=== PATIENT | female | born 1985 | race Caucasian/White ===

== ENCOUNTER 2018-12-24 23:19 | Day surgery (SDC) | payer OTHER ==
[~2018-12-24] VITALS: Ht 154.9 cm; Wt 76.3 kg
[2018-12-24 23:19] VITALS: BP 149/98; PULSE 82; TEMP 98.5
[2018-12-24] MEDS ORDERED: NEURONTIN600 MG/TAB PO (23:37)
[2018-12-24] MEDS ORDERED: FLEXERIL 1010 MG/TAB PO (23:37)
[2018-12-24] MEDS ORDERED: CYMBALTA 60MG60 MG PO (23:38)
[2018-12-24] MEDS ORDERED: MOBIC15 MG PO (23:38)
[2018-12-25] VITALS (8 sets, daily range): BP systolic 110–142; BP diastolic 64–90; PULSE 85–100; TEMP 98–98.3
--- NOTE | 2018-12-25 00:02 | NUR ---
Pt. arrived to the floor via ems. Pt. able to independently transfer to the bed. Pt. is A&OX3, assessment complete. Pt. reports pain at 8 on pain scale. Will give pain med per orders. Pt. denies further needs, call light within reach.
--- NOTE | 2018-12-25 05:58 | NUR ---
Pt. resting quietly at this time. Respirations are equal and unlabored. Pt. arousable to verbal stimuli. Pt. remains A&OX3. IV to lt. ac remains patent. Pt. reports no pain. Pt. denies further needs at this time.
--- NOTE | 2018-12-25 07:00 | NUR ---
Patient down to OR by bed.
--- NOTE | 2018-12-25 08:55 | NUR ---
Patient up from OR. Alert and oriented x3. States mild discomfort. Refuses medicaitons at this time. Shift assessment complete. Patient up to restroom, voiding leyva red urine. Denies further needs at this time.
--- NOTE | 2018-12-25 10:05 | NUR ---
Initial visit; Patient thanked Jawbone Puller for offering God's blessings and keeping her in Jawbone Puller's prayers.
--- NOTE | 2018-12-25 12:05 | NUR ---
Discharge instructions provided. Patient educated on signs and symptoms of infecton. Educated on follow up appointment tomorrow. Educated patient on drinking plenty of fluids. All questions answered. States pain better after second administration of medication. All questions answered. INT to left AC discontinued, catheter tip intact. Denies further needs at this time. Patient out by wheelchair with surgical staff. Voiding without difficulty.
== END 2018-12-25 12:05 | disposition home or self-care (01) ==
LOC: SDCO 23:19 → SURG 23:19 → SDCO 12-25 12:05 → SURG 12-25 12:05
DX: N20.1 Calculus of ureter (principal); Z79.899 Other long term (current) drug therapy; F17.210 Nicotine dependence, cigarettes, uncomplicated; Z88.0 Allergy status to penicillin; K58.9 Irritable bowel syndrome, unspecified; G43.909 Migraine, unspecified, not intractable, without status migrainosus; Z87.442 Personal history of urinary calculi; M54.9 Dorsalgia, unspecified; M54.2 Cervicalgia
CPT/HCPCS: C1769; C1894; C2617; G0378; J1100; J1885; J2270; J2405; J2704; J3010; J7030; Q9967

== ENCOUNTER 2019-01-29 09:05 | Day surgery (SDC) | payer OTHER ==
[~2019-01-29] VITALS: Ht 156.2 cm; Wt 74.8 kg
[~2019-01-29 09:05] MED LIST: CYMBALTA 60MG60 MG PO; FLEXERIL 1010 MG/TAB PO; MOBIC15 MG PO; NEURONTIN600 MG/TAB PO
[2019-01-29 09:51] VITALS: BP 120/82; PULSE 96; TEMP 97.9
[2019-01-29] MEDS ORDERED: NORCO 325 MG-51 TAB PO (09:59)
[2019-01-29] MEDS ORDERED: ZOFRAN8 MG PO (10:00)
--- NOTE | 2019-01-29 10:05 | NUR ---
TO RM AT 0927- CALL LIGHT IN REACH AT BEDSIDE
[2019-01-29 11:10] VITALS: BP 120/85; PULSE 84; TEMP 97.2
--- NOTE | 2019-01-29 11:10 | NUR ---
TO 4 PER CART FROM PACU. ALERT ORIENTED X3, TALKING WITH STAFF. UPON RETURNING TO - AMBULATED TO BATHROOM. PATIENT VOIDED AND STATED SHE FELT MUCH BETTER. DENIES NAUSEA. C/O PAIN 12/31
[2019-01-29 11:13] VITALS: TEMP 98.2
[2019-01-29 11:25] VITALS: BP 121/78; PULSE 88
--- NOTE | 2019-01-29 11:25 | NUR ---
RECEIVED THAD AND LISA
[2019-01-29 11:40] VITALS: BP 128/83; PULSE 82
--- NOTE | 2019-01-29 11:40 | NUR ---
ATE 100% AND TOLERATED WELL.
--- NOTE | 2019-01-29 12:00 | NUR ---
RESTING QUIETLY WITH NO CHANGES
[2019-01-29 12:15] VITALS: BP 120/85; PULSE 87
--- NOTE | 2019-01-29 12:37 | NUR ---
RECEIVED PERCOCET 1 TAB PER C/O PAIN 10/31
[2019-01-29] MEDS ORDERED: PYRIDIUM 100MG100 MG PO (12:48)
--- NOTE | 2019-01-29 13:05 | NUR ---
STATED SHE WAS READY TO GO HOME. RECEIVED DISCHARGE INSTRUCTIONS AND VERBALIZED UNDERSTANDING. DISCONTINUED IV AND INT- CATHETER INTACT
--- NOTE | 2019-01-29 13:20 | NUR ---
DISCHARGED PER WC BY NURSING STAFF TO PRIVATE CAR IN CARE OF - MARÍA
== END 2019-01-29 13:20 | disposition home or self-care (01) ==
LOC: SDCO 09:05
DX: N20.0 Calculus of kidney (principal); F17.210 Nicotine dependence, cigarettes, uncomplicated; G43.909 Migraine, unspecified, not intractable, without status migrainosus; Z90.721 Acquired absence of ovaries, unilateral; Z88.8 Allergy status to other drugs, medicaments and biological substances; Z88.0 Allergy status to penicillin; Z80.9 Family history of malignant neoplasm, unspecified; Z83.3 Family history of diabetes mellitus; Z84.1 Family history of disorders of kidney and ureter; Z88.6 Allergy status to analgesic agent
CPT/HCPCS: C1769; C2617; J0690; J1100; J1170; J1885; J2270; J2405; J2704; J3010; J7120; Q9967

== ENCOUNTER → 2020-07-03 | Outpatient (CLI) | payer OTHER ==
[~2020-07-03] MED LIST changes: +NORCO 325 MG-51 TAB PO; +PYRIDIUM 100MG100 MG PO; +ZOFRAN8 MG PO
== END ==
LOC: COL.RAD 08:55
DX: M47.812 Spondylosis without myelopathy or radiculopathy, cervical region (principal)